=== PATIENT | female | born 1995 | race Caucasian/White ===

== ENCOUNTER 2024-05-10 17:52 | Outpatient (CLI) | payer OTHER, SELFPAY ==
[2024-05-10 18:02] VITALS: BMI 28.2
[2024-05-10 18:11] VITALS: PULSE 72; O2SAT 96
[2024-05-10 18:13] VITALS: BP 104/66; PULSE 78
[2024-05-10 18:16] VITALS: PULSE 79; O2SAT 97
--- NOTE | 2024-05-11 13:58 | OB.TRI.NOTE ---
HPI - General General Date of Admission: 05/10/24 Date of Service: 05/10/24 Chief Complaint: DFM HPI Narrative RUTH BECKHAM, is a 28 F who presents with DFM. No other complaints. Since being on L&D feeling good movement. PFSH PFSH Home Medications ?Medication ?Instructions ?Recorded ?Last Taken ?Type Lactobacillus 40-Bifidobact 1 cap PO DAILY 05/10/24 05/09/24 History 3-S.thermophilus 100 billion cell capsule (Probiotic) doxylamine succinate 25 mg tablet 25 mg PO QHS PRN sleep 05/10/24 Unknown History (Unisom (doxylamine)) ferrous sulfate 325 mg (65 mg 325 mg PO QODAY 05/10/24 Unknown History iron) tablet (iron) vit no.95-ferrous 1 tab PO DAILY 05/10/24 05/10/24 History fumarate 28 mg-folic acid 800 mcg tablet ( Multivitamins) Allergy/AdvReac Type Severity Reaction Status Date / Time No Known Allergies Allergy Verified 05/10/24 18:20 NST FHR Rate Baby A Baseline: 130 Variability:: Moderate Accelerations:: 15 x 15 Decelerations:: None NST Reactive:: Yes Assessment & Plan (1) 38 weeks gestation of : (2) Decreased movement: PLAN: NST reactive Patient now feeling good FM Return precautions given
== END 2024-05-10 19:00 | disposition home or self-care (01) ==
LOC: WPOUT 17:54 → WP 17:55
PROVIDERS: Referring Provider Obstetrics & Gynecology; Visit Provider Obstetrics & Gynecology
DX: O36.8130 Decreased fetal movements, third trimester, not applicable or unspecified (principal); Z3A.38 38 weeks gestation of pregnancy
CPT/HCPCS: 59025; 59050; 99221; G0378

== ENCOUNTER 2024-05-21 02:21 | Inpatient (IN) | payer OTHER, SELFPAY ==
[2024-05-21] VITALS (74 sets, daily range): BP systolic 94–136; BP diastolic 52–86; PULSE 62–93; RESP 14–16; TEMP 36.3–36.7; O2SAT 92–100; BMI 29.3
[2024-05-21] MEDS: Lactated Ringers 1,000 ML 999 ML IV (02:58)
[2024-05-21 02:59] LABS: Absolute Lymphocyte Count 1.54 X10^3/uL (0.83-4.51); Absolute Neutrophil Count 5.3 X10^3/uL (2.0-7.7); Basophil# 0.02 X10^3/uL; Basophil% 0.3 % (0-1); Eosinophil# 0.05 X10^3/uL; Eosinophils% 0.7 % (0-5); Hematocrit 34.8 % (37-47); Lymphocyte # 1.54 X10^3/ul (0.83-4.51); Mean Corp Hgb Conc 34.5 g/dL (32-36); Mean Corpuscular Hgb 34.4 pg (27.0-32.0); Mean Corpuscular Volume 99.7 fL (81-99); Mean Platelet Vol. 10.1 fl (6.2-12.0); Monocyte# 0.44 X10^3/uL; NRBC Flagged by Analyzer 0 % (0-5); Neutrophil # 5.25 X10^3/uL (2.7-7.7); Neutrophil % 71.6 % (47-70); Platelet Count 169 K/mm3 (150-450); RBC Distribution Width CV 13.5 % (11.6-14.6); RBC Distribution Width SD 49.3 fl (35.1-43.9); Red Blood Count 3.49 M/mm3 (4.2-5.4); White Blood Count 7.3 K/mm3 (4.4-11.0)
[2024-05-21 03:20] LABS: Syphilis Antibodies Nonreactive (Nonreactive)
[2024-05-21] MEDS: fentaNYL-bupivacaine (epidural) 100 ML BAG EPIDURAL ×2 (03:51→08:00)
[2024-05-21] MEDS: Lactated Ringers 1,000 ML 200 ML IV (04:00)
[2024-05-21] MEDS: Oxytocin 10 UNITS/ML Vial IM (08:34)
[2024-05-21] MEDS: Oxytocin 15 Units/NS 250ml 15 UNITS/250 ML IV.SOLN 83 UNITS IV (08:35)
--- NOTE | 2024-05-21 08:53 | OB.VAGDELI_ITS ---
Assessment & Plan (1) Vaginal delivery: (2) Second degree perineal laceration: Maternal Data Information Final LYNDSEY: 05/21/24 Vaginal Delivery Maternal Presentation Maternal Presentation: Active Labor Vaginal Delivery Information Procedure Performed: Spontaneous Vaginal Delivery Surgeon/Practitioner: Debra Willis Date of Procedure: 05/21/24 Pre-Procedure Diagnosis: 40 week gestation, spontaneous labor at term Post-Procedure Diagnosis: As above Type of anesthesia: Epidural Special Medications: None Estimated Blood Loss: 200 mL Fluids Replaced: N/A Findings Description of procedure: Patient was complete and pushing. Head of delivered in right occiput anterior position. A loose nuchal cord x 2 was noted and reduced. The anterior shoulder delivered spontaneously followed by the posterior shoulder and body of the without any traction, force, or delay. A vigorous viable female infant was delivered and placed on maternal abdomen. The cord was clamped and cut after a 60 second delay. The placenta spontaneously delivered and was noted to be normal-appearing and intact with a three-vessel cord. Fundus was firm and bleeding scant. 3-0 Vicryl was used to repair second-degree perineal vaginal laceration in usual fashion. Sharp and sponge counts were correct. A vaginal sweep was performed. Procedure findings: Vigorous VFI in vertex presentation with Apgars 9, 9 Clear fluid Normal appearing placenta with 3 VC Presentation: Vertex Amniotic Membrane Rupture Type: Artificial Amniotic Fluid Description: Clear Placental Delivery Description: Spontaneous Placenta Disposition: Other (Patient keeping placenta) Specimen collected: No Cord Vessel Description: 3 Vessels Cord Entanglement: Around neck x 2, loose Nuchal Cord Compression: Without compression A Gender: Female (1 minute): 9 (5 minute): 9 Delayed Cord Clamping: Yes Regulatory Lead title investigator: No Post Vaginal Deli Medications given after delivery: IM Pitocin Episiotomy Description: None Laceration: 2nd degree Complication Complications: No
[2024-05-22 00:07] VITALS: BP 103/54; PULSE 72; RESP 16; TEMP 36.6
[2024-05-22] MEDS: Ibuprofen 600 MG Tablet PO ×2 (02:58→09:36)
[2024-05-22 05:31] VITALS: BP 118/74; PULSE 71
[2024-05-22 05:32] VITALS: BP 118/74; PULSE 71; RESP 16; TEMP 36.6
--- NOTE | 2024-05-22 08:27 | PCM.DC.SUM ---
Providers Date of Admission: 05/21/24 Date of Discharge: 05/22/24 Primary Care Physician: HOLLY BONILLA Reason For Visit: VAG DELIVERY Diagnosis Discharge Diagnosis (1) Vaginal delivery: Status: Acute Code(s): O80 - Encounter for full-term uncomplicated delivery (2) Second degree perineal laceration: Status: Acute Code(s): O70.1 - Second degree perineal laceration during delivery Medications at Discharge Home Medications Lactobacillus 40-Bifidobact 3-S.thermophilus 100 billion cell capsule (Probiotic) 1 cap PO DAILY 05/10/24 vit no.95-ferrous fumarate 28 mg-folic acid 800 mcg tablet ( Multivitamins) 1 tab PO DAILY 05/10/24 Hospital Course Operations None Procedures - Summary of Care Provided Minutes Spent on Discharge: 15 Hospital Course: 28-year-old 3 para 1 presents at 40 weeks gestation with spontaneous labor. She had a spontaneous vaginal delivery on 05/21/2024 without complication. She has second-degree perineal laceration. She was discharged home on day #1 at her request. was breast-feeding and doing well. She was given routine discharge instructions. Physical Exam Narrative Subjective: Patient reports average lochia. Pain well-controlled. Some cramping. is breast-feeding and doing well. No other complaints today. Const alert and no apparent distress Narrative: Fundus firm, below umbilicus. Weight / BMI Weight Weight: 80 kg Body Mass Index (BMI) 29.3 ABG / Lab / Microbiology Data 05/21/24 02:42 D/C Instructions Discharge Diet: No restrictions May resume sexual activity in: 6 weeks DC O2, CPAP, BIPAP Needs Home O2 Discharge instructions: No Please Follow Up With: Debra Willis DO When: Follow up with our office in 1-2 and 6 weeks or as needed. [phone] Meaningful Use Info Meaningful Use Meaningful Use Diagnoses (Choose all that apply): None applicable Ischemic Stroke Statin Dosing Therapy Reference: STATIN DOSE THERAPY REFERENCE: * Patients > 75 years receive moderate or high dose statin therapy. * Patients 75 years or YOUNGER should receive HIGH intensity statin dose unless contraindicated. You will be required to document reason for non-treatment if statin daily dose does not meet guidelines. HIGH DOSE STATIN THERAPY DAILY Atorvastatin > than or = to 40 mg Rosuvastatin > than or = to 20 mg Amlodipine + Atorvastatin > than or = to 2.5/40 mg Ezetimibe + Simvastatin 10/80 mg Simvastatin 80mg Discharge Plan Admission Admit Date/Time: 05/21/24 02:21 Primary Reason for Your Visit: Vaginal delivery Attending Provider: Debra Willis Primary Care Provider: HOLLY BONILLA Discharge Orders/Prescriptions Prescriptions: No Action PNV cmb#95-ferrous fumarate-FA [ Multivitamins] 28 mg iron- 800 mcg tablet 1 tab PO DAILY Probiotic 100 billion cell capsule 1 cap PO DAILY Referrals / Follow Up: HOLLY BONILLA [Other] Disposition Disposition (needs filled in before D/C Order can be placed): Home, Self Care
[2024-05-22 09:30] VITALS: BP 97/51; PULSE 68; RESP 16; TEMP 36.5
[2024-05-22 09:39] VITALS: BP 97/51; PULSE 68
--- NOTE | 2024-05-31 14:16 | PCM.HP.OB ---
HPI - General General Date of Admission: 05/21/24 HPI Narrative RUTH BECKHAM, is a 28 F who presents in labor. Maternal Data Information Final LYNDSEY: 05/21/24 Gestational age: 40 weeks [facility] Medical History (Updated 05/31/24 @ 14:[address] Tobi Oliveira MD) Vaginal delivery Medical History no medical history Home Medications ?Medication ?Instructions ?Recorded ?Last Taken ?Type Lactobacillus 40-Bifidobact 1 cap PO DAILY 05/10/24 05/09/24 History 3-S.thermophilus 100 billion cell capsule (Probiotic) vit no.95-ferrous 1 tab PO DAILY 05/10/24 05/10/24 History fumarate 28 mg-folic acid 800 mcg tablet ( Multivitamins) Allergy/AdvReac Type Severity Reaction Status Date / Time No Known Allergies Allergy Verified 05/21/24 01:05 Social History Smoking Status: Never smoker History Elective abortions Hx Para 1 Spontaneous abortions Hx # Term Pregnancies Ectopic pregnancies Hx # Pregnancies Multiple births # of living children Vital Signs Vital Signs Vital Signs: Weight Weight: 176 lb 5.917 oz Body Mass Index (BMI) 29.3 Labs Labs Labs: Blood Type A POSITIVE Antibody Screen NEGATIVE Hct 34.8 % (37-47) L Hgb 12.0 g/dL (12.0-15.0) Syphilis Total Ab Nonreactive (Nonreactive) Rhogam given: No Assessment & Plan (1) 40 weeks gestation of : PLAN: Plan Admit to L&D Routine care
== END 2024-05-22 12:00 | disposition home or self-care (01) | DRG 807 ==
LOC: WPOUT 02:25 → WP 02:25
PROVIDERS: Obstetrics & Gynecology; Admitting Provider Obstetrics & Gynecology; Referring Provider Obstetrics & Gynecology; Visit Provider Obstetrics & Gynecology
DX: O69.81X0 Labor and delivery complicated by cord around neck, without compression, not applicable or unspecified (principal); Z37.0 Single live birth; O70.1 Second degree perineal laceration during delivery; Z3A.40 40 weeks gestation of pregnancy
CPT/HCPCS: 59025; 59050; 85025; 86780; 86850; 86900; 86901; 99221; G0378